=== PATIENT | female | born 1990 | race African-American/Black ===

== ENCOUNTER → 2021-10-23 | Emergency (ER) | payer MEDICAID ==
[~2021-10-23] VITALS: Ht 167.6 cm; Wt 61.2 kg
[~2021-10-23] MED LIST: NITR-84 PO; NITROFURANTOIN/MONOHYDRATE MACROCRYSTALS 100 MG CAPSULE ONE; NITROFURANTOIN/MONOHYDRATE MACROCRYSTALS 100 MG CAPSULE PO ONE; PHEN-705 PO; PHENAZOPYRIDINE HCL 200 MG TABLET PO ONE
--- NOTE | 2021-10-23 22:29 | NUR ---
pt came in c/o dysuria for 3 days.pt is a/o x4.placed on monitor.
[2021-10-23 23:13] LABS: BILIRUBIN,URINE NEGATIVE (NEGATIVE); COLOR,URINE YELLOW (YELLOW); LEUKOCYTE ESTERASE ,URINE SMALL (NEGATIVE); NITRITE, URINE NEGATIVE (NEGATIVE); PROTEIN,URINE 30 mg/dl (NEGATIVE); UGLUCOSE NEGATIVE (NEGATIVE)
--- NOTE | 2021-10-24 00:02 | NUR ---
Patient discharged to home in stable condition. Written and verbal after care instructions given. Patient verbalizes understanding of instruction. Addendum: 10/24/21 at 0022 by JAQUELINE Patient discharged to home in stable condition.RX and Written and verbal after care instructions given. Patient verbalizes understanding of instruction.
[2021-10-24 00:21] VITALS: BP 112/72
[2021-10-24 07:27] LABS: RBC,URINE TOO NUMEROUS TO COUN /HPF (0-2); WBC,URINE 5 /HPF (0-3)
[2021-10-24 07:28] LABS: BACTERIA,URINE None seen /HPF (None Seen); SQUAMOUS EPITHELIAL CELL,UR Moderate /HPF (None Seen)
== END | disposition home or self-care (01) ==
LOC: ER 20:40
DX: R39.15 Urgency of urination (principal); N39.0 Urinary tract infection, site not specified
CPT/HCPCS: 81001; 87086-TC; 87186-TC

== ENCOUNTER 2022-04-03 08:41 | Emergency (ER) | payer MEDICAID ==
[~2022-04-03] VITALS: Ht 167.6 cm; Wt 63.5 kg
[~2022-04-03 08:41] MED LIST changes: -NITROFURANTOIN/MONOHYDRATE MACROCRYSTALS 100 MG CAPSULE ONE; -NITROFURANTOIN/MONOHYDRATE MACROCRYSTALS 100 MG CAPSULE PO ONE; -PHENAZOPYRIDINE HCL 200 MG TABLET PO ONE
--- NOTE | 2022-04-03 08:55 | NUR ---
TO ER BED 16. BIBS FOR BURNING SENSATION UPON URINATION X1 WEEK. DENIES HAVING HEMATURIA. VITALS ARE WITHIN NORMAL LIMITS. DUSTY MARK.
--- NOTE | 2022-04-03 08:55 | NUR ---
URINE COLLECTED AND SENT TO THE LAB
--- NOTE | 2022-04-03 08:58 | NUR ---
BIBS FOR BURNING URINATION X1 WEEK. DENIES HAVING HEMATURIA. THE PATIENT DENIES HAVING CHILLS/FEVER. WILL CONTINUE TO MONITOR THE PATIENT.
[2022-04-03] MEDS ORDERED: NITR100C6 PO (09:12)
[2022-04-03] MEDS ORDERED: PHEN-704 PO (09:12)
[2022-04-03 09:19] LABS: BILIRUBIN,URINE NEGATIVE (NEGATIVE); COLOR,URINE YELLOW (YELLOW); LEUKOCYTE ESTERASE ,URINE LARGE (NEGATIVE); NITRITE, URINE NEGATIVE (NEGATIVE); PROTEIN,URINE 30 mg/dl (NEGATIVE); UGLUCOSE NEGATIVE (NEGATIVE); UROBILINOGEN,URINE 0.2 EU/dL (0.2)
--- NOTE | 2022-04-03 09:31 | NUR ---
Patient discharged to home in stable condition. Written and verbal after care instructions given. Patient verbalizes understanding of instruction.
[2022-04-03 09:32] VITALS: BP 108/70
[2022-04-03 09:48] LABS: BACTERIA,URINE 2+ /HPF (None Seen); RBC,URINE 21-50 /HPF (0-2); WBC,URINE TOO NUMEROUS TO COUN /HPF (0-3)
== END 2022-04-03 09:32 | disposition home or self-care (01) ==
LOC: ER 08:45
DX: N39.0 Urinary tract infection, site not specified (principal); Z79.899 Other long term (current) drug therapy
CPT/HCPCS: 81001; 84703-TC; 87086-TC; 87186-TC; 87491; 87591